=== PATIENT | female | born 1975 | race Caucasian/White ===

== ENCOUNTER 2018-11-25 19:57 | Emergency (ER) | payer BC ==
[~2018-11-25 19:57] MED LIST: ONDA4TAB6 PO; PANT-47 PO
== END 2018-11-25 21:58 | disposition left against medical advice (07) ==
LOC: ER 19:58
DX: Z53.21 Procedure and treatment not carried out due to patient leaving prior to being seen by health care provider (principal)

== ENCOUNTER 2018-11-26 12:35 | Emergency (ER) | payer BC, OTHER ==
[~2018-11-26] VITALS: Ht 165.1 cm; Wt 84.0 kg
[2018-11-26] MEDS ORDERED: LIDOcaine 1% w/epiNEPHrine 1:200,000 30ml vial IM ONE (13:45)
[2018-11-26] MEDS ORDERED: TETanus/Pertussis (Acell)/Diphther VAC/PF (Tdap-Adult) 0.5ml syringe IM ONE (13:45)
[2018-11-26 15:01] VITALS: BP 157/110
== END 2018-11-26 14:53 | disposition home or self-care (01) ==
LOC: ER 12:36
DX: S71.111A Laceration without foreign body, right thigh, initial encounter (principal); K21.9 Gastro-esophageal reflux disease without esophagitis; Z79.899 Other long term (current) drug therapy; W22.8XXA Striking against or struck by other objects, initial encounter; Y93.89 Activity, other specified; Y92.89 Other specified places as the place of occurrence of the external cause; Y99.8 Other external cause status
CPT/HCPCS: 12002; 90471; 90715; 99283

== ENCOUNTER 2021-08-14 12:47 | Emergency (ER) | payer SELFPAY ==
[~2021-08-14] VITALS: Ht 165.1 cm; Wt 90.9 kg
--- NOTE | 2021-08-14 13:38 | NUR ---
SPOKE TO CIERA LUNDBERG, GOT ORDERS FOR PT.
[2021-08-14 14:13] LABS: ALANINE AMINOTRANSFERASE 30 U/L (12-78); ALBUMIN 3.7 G/DL (3.4-5.0); ALKALINE PHOSPHATASE 76 IU/L (46-116); ANION GAP 8 (8-16); ASPARTATE AMINO TRANSFERASE 25 U/L (10-37); BILIRUBIN,TOTAL 0.2 MG/DL (0.1-1.0); BLOOD UREA NITROGEN 13 MG/DL (7-18); BUN/CREATININE RATIO 17.3 (6.6-38.0); CALCIUM 8.6 MG/DL (8.5-10.1); CHLORIDE 102 MMOL/L (99-107); CREATININE 0.75 MG/DL (0.40-0.90); GLUCOSE 93 MG/DL (70-104); POTASSIUM 3.8 MMOL/L (3.5-5.1); SODIUM 138 MMOL/L (135-145); TOTAL CARBON DIOXIDE 27.6 MMOL/L (24-32); TOTAL PROTEIN 7.5 G/DL (6.4-8.2); eGFR 84 ML/MIN
[2021-08-14 14:31] LABS: BASOPHILS % (AUTO) 0.5 % (0-1); EOSINOPHILS # (AUTO) 0.4 X10'3 (0-0.9); HEMATOCRIT 39.7 % (35.0-45.0); HEMOGLOBIN 13.3 g/dl (12.0-16.0); LYMPHOCYTES # (AUTO) 1.6 X10'3 (1.1-4.8); LYMPHOCYTES % (AUTO) 21.1 % (21-51); MEAN CORPUSCULAR HEMOGLOBIN 31.7 PG (27.0-31.0); MEAN CORPUSCULAR HGB CONC 33.5 g/dL (33.0-36.5); MEAN CORPUSCULAR VOLUME 94.6 FL (78-98); MEAN PLATELET VOLUME 7.8 FL (7.4-10.4); MONOCYTES # (AUTO) 0.6 X10'3 (0-0.9); MONOCYTES % (AUTO) 7.6 % (2-12); NEUTROPHILS % (AUTO) 65.8 % (42-75); PLATELET COUNT 308 X10'3 (140-440); RED CELL DISTRIBUTION WIDTH 13.3 % (11.5-14.5); WHITE BLOOD COUNT 7.6 X10'3 (4.5-11.0)
[2021-08-14] MEDS ORDERED: MEDR10TA PO (20:47)
[2021-08-14 21:19] VITALS: BP 135/87
== END 2021-08-14 21:20 | disposition home or self-care (01) ==
LOC: ER 12:48
DX: N92.0 Excessive and frequent menstruation with regular cycle (principal); K21.9 Gastro-esophageal reflux disease without esophagitis; Z98.51 Tubal ligation status; Z79.899 Other long term (current) drug therapy
CPT/HCPCS: 36415; 76830; 76856; 80053; 85025; 85610; 86885; 86900; 86901; 93976; 99284

== ENCOUNTER 2023-12-26 14:42 | Emergency (ER) | payer BC ==
[~2023-12-26] VITALS: Ht 165.1 cm; Wt 68.0 kg
[~2023-12-26 14:42] MED LIST changes: +MEDR10TA PO
[2023-12-26 14:51] VITALS: BP 118/75; PULSE 80; RESP 16; TEMP 98; O2SAT 97
[2023-12-26] MEDS ORDERED: dexamethasone sod phosphate 10mg/ml inj IM STA (14:54)
[2023-12-26] MEDS ORDERED: ketorolac trometh. 30mg/ml inj. IM ONE (14:55)
[2023-12-26] MEDS ORDERED: MELO-100 PO (14:58)
[2023-12-26] MEDS ORDERED: ketorolac tromethamine 15mg/ml inj. IM ONE (15:00)
== END 2023-12-26 19:39 | disposition home or self-care (01) ==
LOC: ER 14:43
DX: M25.512 Pain in left shoulder (principal); K21.9 Gastro-esophageal reflux disease without esophagitis; Z79.899 Other long term (current) drug therapy; Z79.2 Long term (current) use of antibiotics; Z98.51 Tubal ligation status
CPT/HCPCS: 73030; 99283